=== PATIENT | female | born 1995 | race Caucasian/White ===

== ENCOUNTER 2016-11-11 01:58 | Emergency (ER) | payer OTHER ==
[~2016-11-11] VITALS: Ht 170.2 cm; Wt 90.7 kg
[2016-11-11] MEDS ORDERED: LACTATED RINGERS 1,000 ML IV ONE (02:05)
[2016-11-11] MEDS ORDERED: ONDANSETRON 4 MG/2 ML (SDV) Z0FRAN IVP ONE (02:15)
[2016-11-11 02:59] LABS: BASOPHILS % (AUTO) 0 % (0-10); EOSINOPHILS % (AUTO) 1 % (0-10); LYMPHOCYTES # (AUTO) 1.3 X 10^3 (1.0-4.0); LYMPHOCYTES % (AUTO) 22 % (12-44); MEAN CORPUSCULAR HEMOGLOBIN 29 PG (25-34); MEAN CORPUSCULAR HGB CONC 35 G/DL (32-36); MEAN CORPUSCULAR VOLUME 84 FL (80-99); MEAN PLATELET VOLUME 10.7 FL (7.4-10.4); MONOCYTES # (AUTO) 0.5 X 10^3 (0.0-1.0); MONOCYTES % (AUTO) 8 % (0-12); NEUTROPHILS # (AUTO) 4.2 X 10^3 (1.8-7.8); NEUTROPHILS % (AUTO) 70 % (42-75); PLATELET COUNT 253 10^3/uL (130-400); RED BLOOD COUNT 4.56 10^6/uL (4.35-5.85); RED CELL DISTRIBUTION WIDTH 13.2 % (10.0-14.5)
[2016-11-11 03:19] LABS: ALANINE AMINOTRANSFERASE 44 U/L (0-55); ALBUMIN 4.1 GM/DL (3.2-4.5); ALCOHOL 93 MG/DL (<10); ANION GAP 12 MMOL/L (5-14); ASPARTATE AMINO TRANSFERASE 33 U/L (5-34); BILIRUBIN,TOTAL 0.6 MG/DL (0.1-1.0); BLOOD UREA NITROGEN 10 MG/DL (7-18); BUN/CREATININE RATIO 18 (0-20); CALCIUM 8.9 MG/DL (8.5-10.1); CARBON DIOXIDE 22 MMOL/L (21-32); CHLORIDE 108 MMOL/L (98-107); CREATININE SERUM 0.56 MG/DL (0.60-1.30); GFR ESTIMATED > 60; GLUCOSE 116 MG/DL (70-105); HEMOLYSIS 4 (-100-29); ICTERUS 0.6 (-100-1.9); LIPEMIA 2 (-100-49); MAGNESIUM 2.3 MG/DL (1.8-2.4); POTASSIUM 3.9 MMOL/L (3.6-5.0); SODIUM 142 MMOL/L (135-145); TOTAL PROTEIN 6.9 GM/DL (6.4-8.2)
[2016-11-11] MEDS ORDERED: ONDA4TAB8 SL (03:39)
--- NOTE | 2016-11-11 03:39 | ED Psychosocial ---
General Chief Complaint: Substance Abuse Stated Complaint: ETOH,VOMITING POSS DEHYDRATION Nursing Triage Note: Pt drinking tonight a couple of [employer] Lemonades at a pool [employer] and walked away from drinks a few times. Pt is feeling nausea, shakes, and has had 4 emesis. Pt concerned for dehydration, alcohol poisoning or being drugged. Source: patient Exam Limitations: no limitations History of Present Illness Time seen by provider: 02:05 Initial Comments This 21-year-old young lady presents to the emergency room with complaints of nausea, vomiting, chills, and generally ill feeling. Last night was her 21st birthday and she drink alcohol. She was drinking alcohol again tonight when the symptoms started. She had walked away from her drink prior to the symptoms starting and she wonders if someone may have placed something in it. She does not appear intoxicated at this time. See history above. Allergies and Home Medications Allergies Coded Allergies: No Known Drug Allergies (Unverified , 11/11/16) Home Medications Ondansetron 4 Mg Tab.rapdis, 4 MG SL Q4H PRN for NAUSEA/VOMITING-1ST LINE, #10 Prescribed by: JAIME YUSUF on 11/11/16 0339 Constitutional: see HPI EENTM: no symptoms reported Respiratory: no symptoms reported Cardiovascular: no symptoms reported Gastrointestinal: see HPI Genitourinary: no symptoms reported : No Musculoskeletal: no symptoms reported Skin: no symptoms reported Psychiatric/Neurological: See HPI Past Bmejtmi-Rtjtry-Pwewvg Hx Patient Social History Alcohol Use: Occasionally Uses Recreational Drug Use: No Smoking Status: Never a Smoker 2nd Hand Smoke Exposure: No Recent Foreign Travel: No Contact w/Someone Who Travel: No Recent Infectious Disease Expo: No Recent Hopitalizations: No Seasonal Allergies Seasonal Allergies: No Surgeries HX Surgeries: Yes (wisdom teeth) Surgeries: Adenoidectomy, Tonsillectomy Respiratory Hx Respiratory Disorders: No Cardiovascular Hx Cardiac Disorders: No Neurological Hx Neurological Disorders: No Reproductive System : No Genitourinary Hx Genitourinary Disorders: No Gastrointestinal Hx Gastrointestinal Disorders: No Musculoskeletal Hx Musculoskeletal Disorders: No Endocrine Hx Endocrine Disorders: No HEENT HX ENT Disorders: No Cancer Hx Cancer: No Psychosocial Hx Psychiatric Problems: No Integumentary HX Skin/Integumentary Disorder: No Physical Exam Vital Signs Vital Sign - Last 12Hours 11/11/16 02:09 Temp 98.8 Pulse 87 Resp 20 B/P (MAP) 128/91 Pulse Ox 96 O2 Delivery Room Air Capillary Refill : Less Than 3 Seconds General Appearance: WD/WN, no apparent distress, other (shivering, chills) HEENT: normal ENT inspection, pharynx normal Neck: normal inspection Respiratory: lungs clear, normal breath sounds, no respiratory distress, no accessory muscle use Cardiovascular: regular rate, rhythm, no edema Gastrointestinal: normal bowel sounds, non tender, soft Extremities: normal inspection, no pedal edema 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, no motor/sensory deficits, alert, normal mood/affect, oriented x 3 Appearance/Memory: appropriate appearance Behavior/Eye Contact: cooperative, good eye contact, normal speech Thoughts/Hallucinations: normal thought pattern, no apparent hallucination Skin: normal color, warm/dry Progress/Results/Core Measures Results/Orders Lab Results Laboratory Tests Test 11/11/16 02:52 Range/Units White Blood Count 6.0 4.3-11.0 10^3/uL Red Blood Count 4.56 4.35-5.85 10^6/uL Hemoglobin 13.2 11.5-16.0 G/DL Hematocrit 38 35-52 % Mean Corpuscular Volume 84 80-99 FL Mean Corpuscular Hemoglobin 29 25-34 PG Mean Corpuscular Hemoglobin Concent 35 32-36 G/DL Red Cell Distribution Width 13.2 10.0-14.5 % Platelet Count 253 130-400 10^3/uL Mean Platelet Volume 10.7 H 7.4-10.4 FL Neutrophils (%) (Auto) 70 42-75 % Lymphocytes (%) (Auto) 22 12-44 % Monocytes (%) (Auto) 8 0-12 % Eosinophils (%) (Auto) 1 0-10 % Basophils (%) (Auto) 0 0-10 % Neutrophils # (Auto) 4.2 1.8-7.8 X 10^3 Lymphocytes # (Auto) 1.3 1.0-4.0 X 10^3 Monocytes # (Auto) 0.5 0.0-1.0 X 10^3 Eosinophils # (Auto) 0.0 0.0-0.3 10^3/uL Basophils # (Auto) 0.0 0.0-0.1 10^3/uL Sodium Level 142 135-145 MMOL/L Potassium Level 3.9 3.6-5.0 MMOL/L Chloride Level 108 H 98-107 MMOL/L Carbon Dioxide Level 22 21-32 MMOL/L Anion Gap 12 5-14 MMOL/L Blood Urea Nitrogen 10 7-18 MG/DL Creatinine 0.56 L 0.60-1.30 MG/DL Estimat Glomerular Filtration Rate > 60 BUN/Creatinine Ratio 18 0-20 Glucose Level 116 H 70-105 MG/DL Calcium Level 8.9 8.5-10.1 MG/DL Magnesium Level 2.3 1.8-2.4 MG/DL Total Bilirubin 0.6 0.1-1.0 MG/DL Aspartate Amino Transf (AST/SGOT) 33 5-34 U/L Alanine Aminotransferase (ALT/SGPT) 44 0-55 U/L Alkaline Phosphatase 49 40-136 U/L Total Protein 6.9 6.4-8.2 GM/DL Albumin 4.1 3.2-4.5 GM/DL Serum Test, Qualitative NEGATIVE NEGATIVE Serum Alcohol 93 H <10 MG/DL My Orders Orders - JAIME CANTU MD Alcohol (11/11/16 02:05) Cbc With Automated Diff (11/11/16 02:05) Comprehensive Metabolic Panel (11/11/16 02:05) Hcg,Qualitative Serum (11/11/16 02:05) Magnesium (11/11/16 02:05) Saline Lock/Iv-Start (11/11/16 02:05) Lactated Ringers (Lr 1000 Ml Iv Solution (11/11/16 02:05) Ondansetron Injection (Zofran Injectio (11/11/16 02:15) Medications Given in ED Vital Signs/I&O Blood Pressure Mean: 103 Progress Note : Progress Note Patient received Zofran and a liter of lactated Ringer's. Her blood alcohol content was greater than legal limit. I suspect her symptoms are due to excessive alcohol consumption over the last 2 days. She was dismissed in stable condition. Departure Impression Impression: Primary Impression: Alcohol intoxication Qualified Codes: F10.929 - Alcohol use, unspecified with intoxication, unspecified Additional Impression: Nausea and vomiting Qualified Codes: R11.2 - Nausea with vomiting, unspecified Disposition: 01 HOME, SELF-CARE Condition: Improved Departure-Patient Inst. Decision time for Depature: 03:30 Referrals: [facility] (PCP) Primary Care Physician Patient Instructions: ALCOHOL AND SUBSTANCE ABUSE Add. Discharge Instructions: Drink plenty of clear liquids. Gradually advance your diet with small quantities of bland food as tolerated. Do not drink any alcohol for the next several days. Then drink alcohol only in moderation. Return to the ER if symptoms worsen. Fill Zofran (ondansetron) if needed for further treatment of nausea and vomiting. All discharge instructions reviewed with patient and/or family. Voiced understanding. Scripts Ondansetron (Zofran Odt) 4 Mg Tab.rapdis 4 MG SL Q4H Y for NAUSEA/VOMITING-1ST LINE, #10 TAB Prov: JAIME CANTU MD 11/11/16 JAIME CANTU MD Nov 11, 2016 03:39
[2016-11-11 03:44] VITALS: BP 118/97
== END 2016-11-11 03:44 | disposition home or self-care (01) ==
LOC: ER 02:02
DX: F10.129 Alcohol abuse with intoxication, unspecified (principal); R11.2 Nausea with vomiting, unspecified; Z32.02 Encounter for pregnancy test, result negative
CPT/HCPCS: 36415; 80053; 80320; 83735; 84703; 85025; 96361; 96374

== ENCOUNTER 2016-11-17 14:58 | Emergency (ER) | payer OTHER ==
[~2016-11-17] VITALS: Ht 167.6 cm; Wt 90.7 kg
[~2016-11-17 14:58] MED LIST: ONDA4TAB8 SL
--- NOTE | 2016-11-17 15:34 | ED EENT ---
History of Present Illness General Chief Complaint: Oral/Throat Problems Stated Complaint: THROAT ISSUES Nursing Triage Note: AMB TO ROOM WITH C/O OF FEELING SOMETHING IN THROAT BIRGIT TO EAT AND DRINK WITHOUT PROBLEM. Source: patient Exam Limitations: no limitations History of Present Illness Time seen by provider: 15:34 Initial Comments 21-year-old female patient presents to the emergency department for complaints of feeling like something is stuck in her throat. Patient reports awakening with symptoms this a.m. Denies having food or medication getting stuck in her throat yesterday or this morning. Denies throat pain. Timing/Duration: abrupt, this morning Location: throat Prearrival Treatment: no prearrival treatment Modifying Factors: Worse With Other (worse with swallowing) Allergies and Home Medications Allergies Coded Allergies: No Known Drug Allergies (Unverified , 11/11/16) Home Medications Cefdinir 300 Mg Capsule, 300 MG PO BID, #20 Ref 0 Prescribed by: JG KING on 11/17/16 1645 Review of Systems Constitutional: No chills, No dizziness, No fever, No malaise Eyes: No Symptoms Reported Ears: Denies Dizziness, Denies Pain, Denies Tinnitus Nose: denies congestion, denies pain Mouth: no symptoms reported Throat: see HPI, denies pain, denies swelling, denies neck stiffness, hoarse, denies aphonia, denies muffled, denies painful swallowing, denies difficulty with fluids Respiratory: No cough, No short of breath, No stridor, No wheezing Cardiovascular: no symptoms reported Gastrointestinal: no symptoms reported Musculoskeletal: no symptoms reported Skin: no symptoms reported Neurological: No Symptoms Reported All Other Systems Reviewed Negative Unless Noted: Yes (Negative excepted noted.) Past Bvjemfd-Utkgde-Usanfg Hx Patient Social History Alcohol Use: Occasionally Uses Recreational Drug Use: No Smoking Status: Never a Smoker 2nd Hand Smoke Exposure: No Recent Foreign Travel: No Contact w/Someone Who Travel: No Recent Infectious Disease Expo: No Recent Hopitalizations: No Seasonal Allergies Seasonal Allergies: No Surgeries HX Surgeries: Yes (wisdom teeth) Surgeries: Adenoidectomy, Tonsillectomy Respiratory Hx Respiratory Disorders: No Cardiovascular Hx Cardiac Disorders: No Neurological Hx Neurological Disorders: No Genitourinary Hx Genitourinary Disorders: No Gastrointestinal Hx Gastrointestinal Disorders: No Musculoskeletal Hx Musculoskeletal Disorders: No Endocrine Hx Endocrine Disorders: No HEENT HX ENT Disorders: No Cancer Hx Cancer: No Psychosocial Hx Psychiatric Problems: No Integumentary HX Skin/Integumentary Disorder: No Reviewed Nursing Assessment Reviewed/Agree w Nursing PMH: Yes Family Medical History Significant Family History: No Pertinent Family Hx Physical Exam Vital Signs Vital Sign - Last 12Hours 11/17/16 11/17/16 15:06 17:25 Temp 97.8 Pulse 77 Resp 18 B/P (MAP) 140/83 Pulse Ox 98 General Appearance: WD/WN, no apparent distress Eyes: bilateral eye EOMI, bilateral eye PERRL, bilateral eye normal inspection Ears: bilateral ear TM normal, bilateral ear auricle normal, bilateral ear canal normal Nose: normal inspection Mouth/Throat: normal mouth inspection, No pharynx swelling, No trismus, No uvula swelling, voice changes (mild hoarseness), other (mild pharyngeal erythema.) Neck: non-tender, full range of motion, supple, lymphadenopathy (R), lymphadenopathy (L) Cardiovascular: normal peripheral pulses, regular rate, rhythm, no murmur Respiratory: lungs clear, normal breath sounds, no respiratory distress Gastrointestinal: non tender, soft, No distended Neurologic/Psychiatric: alert, normal mood/affect, oriented x 3 Skin: normal color, warm/dry Progress/Results/Core Measures Results/Orders Lab Results Laboratory Tests Test 11/17/16 15:57 Range/Units Group A Streptococcus Screen NEGATIVE NEGATIVE My Orders Orders - JG KING PA Rapid Strep A Screen (11/17/16 15:50) Soft Tissue Neck (11/17/16 15:50) Chest 1 View, Ap/Pa Only (11/17/16 15:50) Ibuprofen Tablet (Motrin Tablet) (11/17/16 16:47) Dexamethasone Pf Injection (Decadron Pf (11/17/16 16:47) Ceftriaxone Injection (Rocephin Injectio (11/17/16 17:00) Lidocaine 1% Injection (Xylocaine 1% Inj (11/17/16 17:00) Medications Given in ED Current Medications Medications Dose Ordered Sig/Eric Route Start Time Stop Time Status Last Admin Dose Admin Ceftriaxone Sodium 1,000 mg ONCE ONCE IM 11/17/16 17:00 11/17/16 17:01 DC 11/17/16 17:10 1,000 MG Lidocaine HCl 2.1 ml ONCE ONCE INJ 11/17/16 17:00 11/17/16 17:01 DC 11/17/16 17:14 2.1 ML Vital Signs/I&O Vital Sign - Last 12Hours 11/17/16 11/17/16 15:06 17:25 Temp 97.8 97.8 Pulse 77 77 Resp 18 18 B/P (MAP) 140/83 Pulse Ox 98 Blood Pressure Mean: 102 Diagnostic Imaging Diagonstic Imaging: Xray Plain Films/CT/US/NM/MRI: other (soft tissue neck) Comments FINDINGS: There is straightening of the cervical spine curvature, probably positional. Portions of the laryngeal cartilage appear calcified with no definite radiopaque foreign body seen. IMPRESSION: No definite abnormality. Dictated by: Dictated on workstation # [id number] Reviewed: Reviewed by Me (radiology report reviewed by me. ) Diagonstic Imaging: Xray Plain Films/CT/US/NM/MRI: chest Comments FINDINGS: The lungs are clear. The heart size is normal. No effusion or pneumothorax. Mediastinum and kathy appear unremarkable. IMPRESSION: Unremarkable exam. Dictated by: Dictated on workstation # [id number] Reviewed: Reviewed by Me (radiology report reviewed by me. ) Departure Communication Progress Notes Laboratory and diagnostic findings discussed with the patient. Patient given motrin, Rocephin, and Decadron prior to discharge. Discharge with prescription for Omnicef. Patient started follow-up with the primary care physician for recheck. Impression Impression: Primary Impression: Uvulitis Disposition: HOME, SELF-CARE Condition: Improved Departure-Patient Inst. Decision time for Depature: 16:44 Referrals: NO,LOCAL PHYSICIAN (PCP/Family) Primary Care Physician Patient Instructions: Laryngitis (DC) Add. Discharge Instructions: All discharge instructions reviewed with patient and/or family. Voiced understanding. Medications as instructed. Tylenol Extra Strength over-the- counter as directed for pain. Ibuprofen 800 mg by mouth every 8 hours as needed for pain. Drink plenty of fluids. Throat lozenges and sprays over-the- counter for symptoms. Warm salt water gargles as needed. Follow-up with her family practitioner for recheck as outpatient. Return to the emergency department for worsened pain, difficulty breathing, difficulty swallowing, fever , or any other concerns. Scripts Cefdinir (Cefdinir) 300 Mg Capsule 300 MG PO BID, #20 CAP 0 Refills Prov: JG KING 11/17/16 Work/School Note: [employer]ing, Work Release Form Date Seen in the Emergency Department: Nov 17, 2016 Return to Work: Nov 18, 2016 Restrictions: No Restrictions JG KING Nov 17, 2016 15:34
--- NOTE | 2016-11-17 16:24 | Diagnostic Imaging Report ---
EXAMINATION: PA view of the chest. INDICATION: Difficulty swallowing. FINDINGS: The lungs are clear. The heart size is normal. No effusion or pneumothorax. Mediastinum and kathy appear unremarkable. IMPRESSION: Unremarkable exam. Dictated by: Dictated on workstation # [id number]
--- NOTE | 2016-11-17 16:25 | Diagnostic Imaging Report ---
EXAMINATION: AP and lateral views of the soft tissues of the neck. INDICATION: Dysphagia. FINDINGS: There is straightening of the cervical spine curvature, probably positional. Portions of the laryngeal cartilage appear calcified with no definite radiopaque foreign body seen. IMPRESSION: No definite abnormality. Dictated by: Dictated on workstation # [id number]
[2016-11-17] MEDS ORDERED: CEFD300C3 PO (16:45)
[2016-11-17] MEDS ORDERED: IBUPROFEN 800 MG (MOTRIN) TAB PO STA (16:47)
[2016-11-17] MEDS ORDERED: DEXAMETHASONE PF 10 MG/ML (DECADRON) VIAL IM STA (16:47)
[2016-11-17] MEDS ORDERED: LIDOCAINE 1% INJ 20 ML (XYLOCAINE) VIAL INJ ONE (17:00)
[2016-11-17] MEDS ORDERED: cefTRIAXone 1 GM (ROCEPHIN) VIAL IM ONE (17:00)
[2016-11-17 17:25] VITALS: BP 140/83
== END 2016-11-17 17:28 | disposition home or self-care (01) ==
LOC: EDUNIT# 14:58 → ER 15:01
DX: K12.2 Cellulitis and abscess of mouth (principal); Z90.89 Acquired absence of other organs
CPT/HCPCS: 70360; 71010; 87430; 96372; 99282